=== PATIENT | male | born 1970 | race Caucasian/White ===

== ENCOUNTER 2018-09-03 14:11 | Inpatient (IN) | payer BC, OTHER ==
[~2018-09-03] VITALS: Ht 167.6 cm; Wt 99.8 kg
[2018-09-03] MEDS ORDERED: CYAN10009 PO (14:26)
[2018-09-03] MEDS ORDERED: METO25TA6 PO (14:26)
[2018-09-03] MEDS ORDERED: HYDROXYZINE PAMOATE 25 MG CAPSULE PO PRN (15:45)
[2018-09-03] MEDS ORDERED: MAG HYDROX/AL HYDROX/SIMETH 30 ML LIQUID UDC PO PRN (15:45)
[2018-09-03] MEDS ORDERED: LOPERAMIDE HCL 2 MG CAPSULE PO PRN ×2 (15:45)
[2018-09-03] MEDS ORDERED: IBUPROFEN 600 MG TABLET PO PRN (15:45)
[2018-09-03] MEDS ORDERED: DIAZEPAM 5 MG TABLET PO PRN (15:45)
[2018-09-03] MEDS ORDERED: ONDANSETRON 4 MG/2 ML VIAL IM PRN (15:45)
[2018-09-03] MEDS ORDERED: THIAMINE HCL 200 MG/2 ML VIAL IM ONE (15:45)
[2018-09-03] MEDS ORDERED: LORAZEPAM 2 MG/1 ML VIAL IM PRN (15:45)
[2018-09-03] MEDS ORDERED: DIAZEPAM 10 MG TABLET PO PRN (15:45)
[2018-09-03] MEDS ORDERED: MAGNESIUM HYDROXIDE 30 ML LIQUID UDC PO PRN (15:45)
[2018-09-03 15:51] LABS: BASOPHILS # (AUTO) 0.1 K/uL (0.0-8.0); EOSINOPHILS # (AUTO) 0.2 K/uL (0.0-0.7); EOSINOPHILS % (AUTO) 2.3 % (0.0-7.0); HEMATOCRIT 45.6 % (36.7-47.1); HEMOGLOBIN 15.6 g/dL (12.5-16.3); LYMPHOCYTES # (AUTO) 2.3 K/uL (20.0-40.0); MEAN CORPUSCULAR HEMOGLOBIN 28.2 uug (23.8-33.4); MEAN CORPUSCULAR HGB CONC 34 g/dL (32.5-36.3); MEAN CORPUSCULAR VOLUME 82.5 fL (73.0-96.2); MONOCYTES # (AUTO) 0.5 K/uL (2.0-10.0); MONOCYTES % (AUTO) 6.5 % (0.0-11.0); NEUTROPHILS # (AUTO) 4.3 K/uL (1.8-8.9); NEUTROPHILS % (AUTO) 59.2 % (38.5-71.5); PLATELET COUNT (AUTO) 149 K/uL (152-348); RED BLOOD CELL COUNT(AUTO) 5.53 MIL/uL (4.06-5.63); WHITE BLOOD COUNT (AUTO) 7.3 K/uL (3.6-10.2)
[2018-09-03 15:59] LABS: *AMPHETAMINE, URINE NEGATIVE (NEGATIVE); *BARBITURATE, URINE NEGATIVE (NEGATIVE); *CANNABINOID, URINE NEGATIVE (NEGATIVE); *COCCAINE, URINE NEGATIVE (NEGATIVE); *OPIATE, URINE NEGATIVE (NEGATIVE); *PHENCYCLIDINE SCREEN,URINE NEGATIVE (NEGATIVE)
--- NOTE | 2018-09-03 16:00 | NUR ---
ADMISSION Patient arrived on the unit at 1504. Body assessment completed by male staff nurse, patients skin is intact. Patient is 5 feet 6 inches and weighs 220 lbs. Oriented to unit and to room, education oncology physician assistant light use was provided. BP: 124/82 hr: 108, r: 18 t: 98.2 o2 sat: 94% room air. Patient appears older than stated age, odorous and flushed. Has worried/anxious facial expression. Noted with avoidant eye contact, depressed mood and flat affect. patient noted easily overwhelmed and guarded. Patient noted flushed and with slurred speech. Is fidgety and tearful. Patient is alert and oriented x4. Patient currently intoxicated, with no s/sx of withdrawal noted. Patient smells of alcohol. SUBSTANCE USE/HISTORY 1. Etoh- C[employer] Light Beer. Reports had his first drink at age of 7-8 years old. Began drinking socially in his teens. Became a heavy drinker as an adult. Patient reports relapsed two weeks ago, and has been consuming eighteen, 12oz cans of Coor's Lights along with nine, 16oz cans of Coor's Light beer daily for two weeks. Last Consumed drink was 09/03/2018 (3495-2400), consumed twenty-three, 12oz cans of C[employer] Light Beer. Was sober for 72 days prior to relapse. Reports longest Period of sobriety was for 6.5 months In the beginning of the year. Typical withdrawal symptoms include: " nausea, sweats, tremors, sick to my stomach, feeling hot and cold, dry heaving, and vomiting" CONSEQUENCES OF SUBSTANCE ABUSE -Positive history of blackouts, patient verbalized, "My ex wives says I would say and do things, that I do not recall telling/doing to her, she says we would get into arguments and the next day I would have no recollection of it -Denies withdrawal induced delirium. -Denies any history of seizure. MEDICAL/PSYCHIATRIC CONDITIONS -Hypertension, diagnosed at the age of [age] years old, Patient currently taking Metoprolol 25mg PO BID, last taken today. -Pre-diabetes, diagnosed at the age of [age] years old. -Anxiety diagnosed at age of 46, Patient currently taking BuSpar, and Hydroxyzine, Patient reports he does not know the strength of the medications (Dr. victoria was made aware) -Depression diagnosed at age of 46. -Appendectomy, at age 10. PRIMARY CARE PHYSICIAN/PSYCHIATRIST -Does not recall the name of MD, located in [place], no psychiatrist. PSYCHIATRIC COMPLICATIONS -Denies Involuntary psych hospitalization. -Denies SI/SA. TREATMENT HISTORY 1. [facility] twice, once this year, and once last year. 2. the [facility] three times there about three years ago. "I've been to treatment numerous times" Patient unable to recall dates and times. MOTIVATION Reports usage of etoh: I started drinking with friends and having a good time, When I was 17-19 y.o. I would drink all night and go to work the next day and not have a problem, But now I just keep thinking I can stop whenever I want but my body and my health dont agree. I am not young as I used to be I guess, Now I Drink because if I dont I feel really sick and my cravings take over I drink now, because I get stressed and overwhelmed with things Verbalized wants to get sober because, " I am not living, I cant make it to work, I dont function anymore, I am falling apart, I need to change" Reports triggers for relapse include, " When i attempt to stop on my own i feel really sick, I Try but the cravings kick in and i cave in and end up drinking to make me feel better, but its affected everything in my life, its affected my job, my relationship with my daughter, and my me because of it. Barriers for getting/staying sober include: " I've tried getting sober on my own, and i just can't do it, I crave alcohol so bad, like right now I just really want a beer, and when i find it difficult to cope with things or I get overwhelmed I end up drinking" Consequences of drinking include " My me, my daughter is upset at me that I always do this, I got to work drunk, the other day I went into work wearing two different shoes, I've also had unspecified legal problems" Patient reports he has attempted to get sober multiple times, but with no success. reports this time will be different because, " I believe God will do something, I can only take so much" Patient reports he plans on attending [facility] upon completing detox. Patient seen and examined by Dr. Gary MD will input admitting orders. Safety Measures are in place. call light kept with in reach, will continue to monitor closely.
[2018-09-03 16:09] LABS: BILIRUBIN,TOTAL 1.1 mg/dL (0.2-1.0); CREATININE 1.1 mg/dL (0.6-1.3); MAGNESIUM 2.3 mg/dL (1.8-2.4); POTASSIUM 3.5 mmol/L (3.5-5.1); TOTAL PROTEIN, SERUM 9.2 g/dL (6.4-8.2)
[2018-09-03 16:20] LABS: THYROID STIMULATING HORMONE 3.278 mIU/mL (0.358-3.740)
[2018-09-03 17:31] VITALS: BP 122/85
--- NOTE | 2018-09-03 18:54 | NUR ---
END OF SHIFT Patient admitting today during shift, with admitting Dx: etoh withdrawal. Patient currently still noted intoxicated, continues under close observation. Patient is scheduled to begin a 5 day Valium taper tomorrow morning. Has PRN medication available for s/sx of withdrawal. Safety measures in place. Endorsed to table games shift manager nurse, all pertinent information was discussed.
--- NOTE | 2018-09-03 18:54 | NUR ---
START OF SHIFT NOTE Presented patient is a 47year old male admitted today at 1500 for safety Alcohol withdrawal under medical supervision. Patient is on ordered PRN Medications, and ordered 5 day Valium taper, with first dose will be giving tomorrow at 0900, as ordered. Patient is alert and oriented x4, cooperative, with anxious mood and flat affect. Throughout the day patient noted intoxicated, per day shift nurse report. No PRN Medications administrated during day shift. Encouraged to fluids intake as tolerated. Encouraged to attend group activities. All needs met. Safety measures in place: Call light within reach, bed I in the lowest position, and locked; Padded bed rails up x2. Patient endorsed by day shift nurse. Will continue to monitor.
[2018-09-03] MEDS ORDERED: BUSP5TAB3 PO (19:18)
[2018-09-03 20:00] VITALS: BP 94/65
--- NOTE | 2018-09-03 20:00 | NUR ---
CIWA ASSESSMENT CIWA=14. Patient noted with moderate withdrawal symptoms such as anxiety, agitation, nervousness, irritability, nausea, generalized body aches, bilateral tremors, stomach cramps, very mild headache, restlessness, and fatigue. Scheduled and PRN medications will be administrated as ordered. Safe and calm environment provided. All needs met. Safety measures in place: Call light within reach, bed I in the lowest position, and locked; Padded bed rails up x2. Will continue to monitor.
[2018-09-03] MEDS: METOPROLOL TARTRATE 25 MG TABLET PO SCH (20:11)
[2018-09-03] MEDS: DIAZEPAM 10 MG TABLET PO PRN (20:12)
--- NOTE | 2018-09-03 20:12 | NUR ---
PRN VALIUM PO ADMINISTRATION PRN Valium 10 mg PO administrated for CIWA=14 at 2012, as ordered. Will be reassessing in one hour. Patient tolerated well. Encouraged to fluids intake as tolerated. Safe and calm environment provided. All needs met. Safety measures in place: Call light within reach, bed I in the lowest position, and locked; Padded bed rails up x2. Will continue to monitor.
[2018-09-03] MEDS: ONDANSETRON ODT 4 MG TAB.RAPDIS SL PRN (20:18)
--- NOTE | 2018-09-03 20:18 | NUR ---
PRN ZOFRAN SL ADMINISTRATION PRN Zofran Odt 4 mg SL administrated for nausea, as ordered. Will be reassessing in one hour. Patient tolerated well. Safe and calm environment provided. All needs met. Safety measures in place: Call light within reach, bed I in the lowest position, and locked; Padded bed rails up x2. Will continue to monitor.
--- NOTE | 2018-09-03 21:18 | NUR ---
PRN VALIUM RE-ASSESSMENT CIWA =10. PRN Valium 10 mg PO administrated for CIWA=14 at 2012 was effective. Encouraged to fluids intake as tolerated. Safe and calm environment provided. All needs met. Safety measures in place: Call light within reach, bed I in the lowest position, and locked; Padded bed rails up x2. Will continue to monitor.
--- NOTE | 2018-09-03 21:18 | NUR ---
PRN ZOFRAN SL RE-ASSESSMENT Patient reports, "I don't have nausea anymore". PRN Zofran Odt 4 mg SL administrated for nausea at 2018 was effective. Safe and calm environment provided. All needs met. Safety measures in place: Call light within reach, bed I in the lowest position, and locked; Padded bed rails up x2. Will continue to monitor.
[2018-09-04] VITALS: BP 107/68
--- NOTE | 2018-09-04 | NUR ---
CIWA ASSESSMENT CIWA=12. Patient presented with anxiety, agitation, nervousness, generalized body aches, bilateral tremors, sweating, very mild headache, restlessness, and fatigue. PRN medications will be administrated as ordered. Safe and calm environment provided. All needs met. Safety measures in place: Call light within reach, bed I in the lowest position, and locked; Padded bed rails up x2. Will continue to monitor.
[2018-09-04] MEDS: DIAZEPAM 10 MG TABLET PO PRN (00:12)
--- NOTE | 2018-09-04 00:12 | NUR ---
PRN VALIUM PO AND PRN MOTRIN PO ADMINISTRATION PRN Valium 10 mg PO administrated for CIWA=12 at 0012, and PRN Motrin 600 mg PO administrated at 0012, as ordered. Patient tolerated well. Will be reassessing in one hour. Patient tolerated well. Encouraged to fluids intake as tolerated. Safe and calm environment provided. All needs met. Safety measures in place: Call light within reach, bed I in the lowest position, and locked; Padded bed rails up x2. Will continue to monitor.
--- NOTE | 2018-09-04 01:12 | NUR ---
PRN VALIUM PO AND PRN MOTRIN RE-ASSESSMENT Patient is sleeping. RR:16. Respirations are even and unlabored. PRN Valium 10 mg PO administrated for CIWA=12 at 0012, and PRN Motrin 600 mg PO administrated at 0012 were effective. Encouraged to fluids intake as tolerated. Safe and calm environment provided. All needs met. Safety measures in place: Call light within reach, bed I in the lowest position, and locked; Padded bed rails up x2. Will continue to monitor.
[2018-09-04 04:00] VITALS: BP 117/80
--- NOTE | 2018-09-04 04:00 | NUR ---
CIWA ASSESSMENT CIWA=10. Patient noted with anxiety, agitation, nervousness, sweating, tremors, restlessness, and fatigue. All needs met. Safety measures in place: Jose light within reach, bed is locked in lowest position, padded rails up x2. Will continue to monitor closely.
--- NOTE | 2018-09-04 07:27 | NUR ---
END OF SHIFT NOTE Endorsed patient is a 47 year old male admitted for Alcohol withdrawal, continues ordered PRN Medications, which tolerated well. Patient is alert and oriented x4, cooperative, with anxious/irritable mood and flat/depressive affect. CIWA=14 at 2000, CIWA=12 at 0000. Last CIWA=10 at 0400. Patient presented with moderate withdrawal symptoms such as anxiety, agitation, nervousness, irritability, nausea, generalized body aches, bilateral tremors, stomach cramps, very mild headache, restlessness, and fatigue. PRN Valium 10 mg PO administrated for CIWA=14 at 2012, PRN Zofran Odt 4 mg SL administrated for nausea at 2018, PRN Valium 10 mg PO administrated for CIWA=12 at 0012, PRN Motrin 600 mg PO administrated for generalized body aches "5/10" at 0012, and were effective. Patient encouraged to fluids intake as tolerated. Encouraged to attend group activities. Patient slept for 10 hours, intake 250 ml, output: voided x1. All needs met. Safety measures in place: Jose light within reach, bed is locked in lowest position, padded rails up x2. Patient endorsed to day shift nurse.
--- NOTE | 2018-09-04 07:36 | NUR ---
BEGINNING OF SHIFT Patient endorsement report received from communication studies professor nurse, all pertinent information was discussed. Patient continues under close observation, admitted yesterday with admitting Dx: etoh withdrawal. Patient is scheduled to begin a 5 day Valium taper today during shift. will monitor closely. Per communication studies professor report patient received Valium x2, Zofran, and Motrin. Last CIWA score of: 10, and slept for 10 hours. Received patient awake, alert and oriented x4, educated regarding plan of care for the day and medication regimen with good verbal understanding. Safety measures are in place. call light kept with in reach, will continue to monitor.
[2018-09-04 09:00] VITALS: BP 114/67
[2018-09-04] MEDS ORDERED: TUBERCULIN,PURIF.PROT.DERIV. 5 TU/0.1 ML TEST ID ONE (09:00)
[2018-09-04] MEDS ORDERED: 5 DAY TAPER VALIUM-SERENITY PROTOCOL PO PRN (09:00)
[2018-09-04] MEDS: CYANOCOBALAMIN 1,000 MCG TABLET PO SCH (09:02)
[2018-09-04] MEDS: THIAMINE HCL 100 MG TABLET PO SCH (09:02)
[2018-09-04] MEDS: METOPROLOL TARTRATE 25 MG TABLET PO SCH ×2 (09:02→17:07)
[2018-09-04] MEDS: DIAZEPAM 10 MG TABLET PO SCH ×4 (09:02→20:47)
[2018-09-04] MEDS: FOLIC ACID 1 MG TABLET PO SCH (09:03)
[2018-09-04] MEDS: MULTIVITAMINS,THERAPEUTIC TABLET PO SCH (09:03)
--- NOTE | 2018-09-04 09:10 | NUR ---
CIWA ASSESSMENT Was noted exhibiting the following s/sx of withdrawal: agitation, diaphoresis, anhedonia, anxiety, depression, difficulty concentrating, difficulty sleeping, emotional volatility, fatigue, flushed face, frequent nocturnal awakenings, generalized discomfort, intermittent perspiration, sensitivity to light,and tremors, Current CIWA score of: 15, MD notified.
[2018-09-04 12:28] VITALS: BP 119/77
[2018-09-04] MEDS: ONDANSETRON ODT 4 MG TAB.RAPDIS SL PRN (13:19)
--- NOTE | 2018-09-04 13:19 | NUR ---
PRN ZOFRAN Patient c/o nausea and reported one episodes of vomiting. Administered zofran as ordered, will monitor effectiveness of medication.
--- NOTE | 2018-09-04 13:22 | NUR ---
CIWA ASSESSMENT Was noted exhibiting the following s/sx of withdrawal: agitation, diaphoresis, anhedonia, anxiety, depression, difficulty concentrating, difficulty sleeping, emotional volatility, fatigue, flushed face, frequent nocturnal awakenings, generalized discomfort, intermittent perspiration, nausea,and tremors, Current CIWA score of: 16, MD notified.
--- NOTE | 2018-09-04 14:19 | NUR ---
ZOFRAN REASSESSMENT Medication effective, no further episodes of vomiting noted, no c/o nausea, will continue to monitor.
--- NOTE | 2018-09-04 14:55 | NUR ---
Therapist prompted client to attend group therapy.
[2018-09-04] MEDS ORDERED: DIAZEPAM 10 MG TABLET PO PRN ×2 (15:46)
[2018-09-04] MEDS ORDERED: DIAZEPAM 5 MG TABLET PO PRN (15:46)
[2018-09-04 16:49] VITALS: BP 121/78
[2018-09-04] MEDS: busPIRone 5 MG TABLET PO SCH (17:07)
--- NOTE | 2018-09-04 17:55 | NUR ---
CIWA ASSESSMENT Continues to exhibit the following s/sx of withdrawal: agitation, diaphoresis, anhedonia, anxiety, depression, difficulty concentrating, difficulty sleeping, emotional volatility, fatigue, flushed face, frequent nocturnal awakenings, generalized discomfort, intermittent perspiration, nausea,and tremors, Current CIWA score of: 16, MD notified.
--- NOTE | 2018-09-04 19:07 | NUR ---
START OF SHIFT NOTE Endorsed patient, 47 year old male, continues 5 day Valium taper ordered for Alcohol withdrawal. Today is first day. Patient tolerated well. Patient is on the bed, alert and oriented x4, with depressive mood and anxious affect. Last CIWA=16 at 1649. Patient presented with following moderate withdrawal symptoms such as anxiety, agitation, irritability, depression, flashed face, nervousness, headache, generalized body pain, nausea, bilateral tremors, sweating, restlessness, and fatigue. PRN Zofran 4 mg SL administrated for nausea at 1319 and was effective. Encouraged to fluids intake as tolerated. Encouraged to attend group activities. All needs met. Safety measures in place: Call light within reach, bed in the lowest position, and locked, padded bed rails up x2. Patient endorsed by day shift nurse. Will continue to monitor.
--- NOTE | 2018-09-04 19:07 | NUR ---
END OF SHIFT Patient alert and oriented x4, noted Isolative, prefers to stay in room, encouraged to attend group therapies/sessions and to socialize with peers. Denies SI/HI. Patient appears disheveled and unkempt, encouraged self grooming and maintenance of personal space. Linen change offered and declined. Patient with flat affect and avoidant eye contact. Noted with depressed and anxious mood. Easily agitated and irritable. Patient provided with non pharmacological interventions as needed. Patient started on 5 day Valium taper during shift. Was noted exhibiting the following s/sx of withdrawal: agitation, diaphoresis, anhedonia, anxiety, depression, difficulty concentrating, difficulty sleeping, emotional volatility, fatigue, flushed face, frequent nocturnal awakenings, generalized discomfort, intermittent perspiration, sensitivity to light, nausea, and tremors, last CIWA score of: 16. MD was notified of all CIWA scores during shift. Received PRN: Zofran during shift, medication effective. . Encouraged to develop coping skills and utilization of non pharmacological interventions. Safety measures are in place, call light kept with in reach. Patient endorsed to [facility] shift lead nurse, all pertinent information was discussed.
[2018-09-04 20:00] VITALS: BP 96/60
--- NOTE | 2018-09-04 20:00 | NUR ---
CIWA ASSESSMENT CIWA=12 at 2000. Patient presented with withdrawal symptoms such as anxiety, agitation, irritability, depression, flashed face, nervousness, bilateral tremors, diarrhea, abdominal cramps, insomnia, sweating, restlessness, and fatigue. Scheduled Valium 5 mg PO, PRN Imodium 4mg PO for diarrhea, and PRN Benadryl 50 mg PO for insomnia will be administrated, as ordered. Safety and calm environment provided. All needs met. Safety measures in place: Call light within reach, bed is locked on the lowest position, padded bed rails up bilaterally. Will continue to monitor.
[2018-09-04] MEDS: diphenhydrAMINE 50 MG CAPSULE PO PRN (20:47)
--- NOTE | 2018-09-04 20:47 | NUR ---
PRN BENADRYL PO ADMINISTRATION PRN Benadryl 50 mg PO administrated for insomnia at 2046, as ordered. Will be reassessing in one hour. Patient tolerated well. Safe and calm environment provided. All needs met. Safety measures in place: Call light within reach, bed is locked on the lowest position, padded bed rails up bilaterally. Will continue to monitor.
--- NOTE | 2018-09-04 20:52 | NUR ---
PRN IMMODIUM PO ADMINISTRATION Patient c/o diarrhea, "for last hour three times". PRN Immodium (Loperamide HCL 2 mg capsule) 4 mg (2 Capsules) after 1st bout of diarrhea PO administrated at 2051, as ordered. Reassessment will be done in one hour. Patient tolerated well. Safe and calm environment provided. All needs met. Safety measures in place: Call light within reach, bed is locked on the lowest position, padded bed rails up bilaterally. Will continue to monitor. Addendum: 09/04/18 at 2204 by REJI HERNANDEZ RN IMODIUM
--- NOTE | 2018-09-04 21:47 | NUR ---
PRN BENADRYL PO RE-ASSESSMENT Patient is sleeping o his side. Respirations are even and unlabored. RR:15. PRN Benadryl 50 mg PO administrated for insomnia at 2046 was effective. Encouraged to fluids intake as tolerated. Safe and calm environment provided. All needs met. Safety measures in place: Call light within reach, bed I in the lowest position, and locked, padded bedrails up bilaterally. Will continue to monitor.
--- NOTE | 2018-09-04 21:52 | NUR ---
PRN IMODIUM PO RE-ASSESSMENT Patient is sleeping o his side. Respirations are even and unlabored. RR:15. PRN Imodium (Loperamide HCL 2 mg capsule) 4 mg (2 Capsules) after 1st bout of diarrhea PO administrated at 2051 was effective. Safe and calm environment provided. All needs met. Safety measures in place: Call light within reach, bed I in the lowest position, and locked, padded bedrails up bilaterally. Will continue to monitor.
[2018-09-05] VITALS: BP 101/59
--- NOTE | 2018-09-05 | NUR ---
CIWA ASSESSMENT Patient presented with following withdrawal symptoms, such as anxiety, agitation, depression, nervousness, sweating, chills, bilateral tremors, restlessness, and fatigue. All needs met. Safety measures in place: Jose light within reach, bed is locked in lowest position, padded rails up x2. Will continue to monitor closely. Addendum: 09/05/18 at 0022 by REJI HERNANDEZ RN CIWA=9.
--- NOTE | 2018-09-05 04:00 | NUR ---
VS REFUSED, CIWA DEFERRED VS refused, CIWA deferred at 0400 due patient sleeping. Will be to assess when patient awake. All needs met. Safety measures in place: Call light within reach, bed in the lowest position, and locked, padded bed rails up x2. Will continue to monitor.
[2018-09-05 06:06] LABS: HEPATITIS B SURFACE AG Negative (Negative)
[2018-09-05 07:13] LABS: BASOPHILS % (AUTO) 0.8 % (0.0-2.0); EOSINOPHILS # (AUTO) 0.2 K/uL (0.0-0.7); EOSINOPHILS % (AUTO) 4.5 % (0.0-7.0); LYMPHOCYTES # (AUTO) 1.2 K/uL (20.0-40.0); LYMPHOCYTES % (AUTO) 32.9 % (20.5-51.5); MEAN CORPUSCULAR HEMOGLOBIN 28.1 uug (23.8-33.4); MEAN CORPUSCULAR HGB CONC 34 g/dL (32.5-36.3); MEAN CORPUSCULAR VOLUME 83.2 fL (73.0-96.2); MONOCYTES # (AUTO) 0.3 K/uL (2.0-10.0); MONOCYTES % (AUTO) 8.3 % (0.0-11.0); NEUTROPHILS % (AUTO) 53.5 % (38.5-71.5); RED BLOOD CELL COUNT(AUTO) 4.87 MIL/uL (4.06-5.63)
--- NOTE | 2018-09-05 07:14 | NUR ---
END OF SHIFT NOTE This report on patient, a 47 year old male admitted for alcohol withdrawal, continues ordered 5 day Valium Taper (day 3) with tolerated well. He is a full code. NKA, is on a fall and seizures precautions. CIWA=12 at 2000. The most recent CIWA=9 at 0000. Patient noted with withdrawal symptoms, such as anxiety, agitation, irritability, depression, flashed face, nervousness, chills, bilateral tremors, abdominal cramps, diarrhea, sweating, restlessness, and fatigue. PRN Benadryl PO administrated for insomnia at 2046, PRN Imodium (Loperamide HCL 2 mg capsule) 4 mg (2 Capsules) after 1st bout of diarrhea PO administrated at 2051, and were effective. Patient encouraged to intake fluids as tolerated. Encouraged to attend group activities. Patient slept for 10 hours, intake 1,000 ml, output: voided x1, stool x3. All needs met. Safety measures in place: Jose light within reach, bed is locked in lowest position, padded rails up x2. Patient endorsed to day shift nurse.
[2018-09-05 07:26] LABS: HEMATOCRIT 40.5 % (36.7-47.1); HEMOGLOBIN 13.7 g/dL (12.5-16.3); WHITE BLOOD COUNT (AUTO) 3.7 K/uL (3.6-10.2)
[2018-09-05 07:27] LABS: BILIRUBIN,DIRECT 0.3 mg/dL (0.0-0.2); BILIRUBIN,TOTAL 1.1 mg/dL (0.2-1.0); PLATELET COUNT (AUTO) 91 K/uL (152-348); TOTAL PROTEIN, SERUM 7.2 g/dL (6.4-8.2)
--- NOTE | 2018-09-05 07:30 | NUR ---
Start of Shift Cuff Folder received report on 47 year old male admitted on 09/03/18 for medical management of ETOH withdrawals. Pt endorses NKA, full code and regular diet. Endorses PMH of HTN and a PPH of anxiety and depression. Pt currently on a 5 day Valium taper with last CIWA 9, per NOC report. Pt was administered PRN Benadryl(insomnia) and Imodium(Diarrhea) on NOC, per report. Cuff Folder encounters pt in pts room. Pt is resting and calm and cooperative. Pt is A/O x4 and makes his needs known. Pt with a flat affect and depressed mood. Pt is anxious and restless, stating, I was restless all night, didnt sleep great. Pt with fine tremors, moist skin and nausea. Bed in low position, with wheels locked and side rails up x2. Will continue to monitor, support and encourage according to plan of care.
[2018-09-05 08:00] VITALS: BP 118/85
--- NOTE | 2018-09-05 08:00 | NUR ---
CIWA 11 Pt is diaphoretic, tremulous, anxious, restless and complains of nausea. Will continue to monitor, support and encourage according to plan of care.
[2018-09-05] MEDS ORDERED: INFLUENZA VACCINE 2018-2019 0.5 ML DISP.SYRIN IM ONE (09:00)
[2018-09-05] MEDS ORDERED: PNEUMOCOCCAL 23-VAL P-SAC VAC 0.5 ML VIAL IM ONE (09:00)
[2018-09-05] MEDS: METOPROLOL TARTRATE 25 MG TABLET PO SCH ×2 (09:09→16:51)
[2018-09-05] MEDS: DIAZEPAM 10 MG TABLET PO SCH ×3 (09:09→20:23)
[2018-09-05] MEDS: busPIRone 5 MG TABLET PO SCH ×3 (09:09→16:50)
[2018-09-05] MEDS: THIAMINE HCL 100 MG TABLET PO SCH (09:09)
[2018-09-05] MEDS: FOLIC ACID 1 MG TABLET PO SCH (09:09)
[2018-09-05] MEDS: CYANOCOBALAMIN 1,000 MCG TABLET PO SCH (09:09)
[2018-09-05] MEDS: MULTIVITAMINS,THERAPEUTIC TABLET PO SCH (09:09)
[2018-09-05 09:23] LABS: EOSINOPHILS % (MANUAL) 5 % (0-8); LYMPHOCYTES % (MANUAL) 36 % (20-40); MONOCYTES % (MANUAL) 5 % (2-10); NEUTROPHILS % (MANUAL) 54 % (42-75)
--- NOTE | 2018-09-05 10:26 | NUR ---
Therapist prompted client to attend group therapy.
--- NOTE | 2018-09-05 10:34 | NUR ---
Endorsement Endorsed care of pt to [facility].
--- NOTE | 2018-09-05 10:38 | NUR ---
Endorsement Endorsement received from off going [facility], all pertinent info relayed.
[2018-09-05 12:00] VITALS: BP 101/73
--- NOTE | 2018-09-05 12:00 | NUR ---
CIWA 13 Pt is diaphoretic, tremulous, anxious, restless and lethargic. Will continue to monitor, support and encourage according to plan of care. Scheduled Buspar 5mg PO given, no PRN required or requested
[2018-09-05 16:00] VITALS: BP 97/58
--- NOTE | 2018-09-05 16:00 | NUR ---
CIWA 14 Pt is diaphoretic, tremulous, anxious, restless ,lethargic and has left deltoid pain 9/10 from Pneumococcal vaccine, warm compress applied to site. Will continue to monitor, support and encourage according to plan of care. Scheduled Buspar 5mg PO given, no PRN required or requested
--- NOTE | 2018-09-05 16:00 | NUR ---
Noemy [place] Patient states he has pain 07/28 in left deltoid where he received Pneumococcal vaccine, warm compress placed over muscle for comfort measures. Addendum: 09/05/18 at 1735 by DEEPA GARZA RN ASH ell[place]
[2018-09-05] MEDS: ONDANSETRON ODT 4 MG TAB.RAPDIS SL PRN (18:22)
--- NOTE | 2018-09-05 18:22 | NUR ---
PRN Zofran Zofran 4mg SL given for reports of nausea, no emesis Will reassess
--- NOTE | 2018-09-05 18:48 | NUR ---
End Of Shift Patient is a 47 yr old male who [facility] for a medically supervised withdrawal from ETOH ( Beer), he has been placed on a 5 day Valium taper and this is day 2. PRN medications given on this shift: Zofran 4mg SL, he did receive Flu and Pneumococcal vaccines and complains of left deltoid pain/ tenderness at site of Pneumococcal vaccine, warm compress applied to site. Platelet levels low decreased from 149 on 09/03 to 91 today 09/05, MD discontinued Ibuprofen. Patient appears lethargic, depressed and restless and has rested in bed most of day, encouraged to attend groups and interact with peers. He had a fluid intake of 1700 ML, 2 Voids and 0 BM, his last CIWA was 14 @ 1600 . Continue to follow MD plan of care and offer support and encouragement as needed. Endorsed to shift nurse manager.
--- NOTE | 2018-09-05 18:50 | NUR ---
START OF SHIFT NOTE Endorsed patient,47 year old male, continues 5 day Valium taper, ordered for Alcohol withdrawal. Patient is alert and oriented x4, noted anxious mood and depressive/flat affect. Latest CIWA=14 at 1600: Patient presented with moderate withdrawal symptoms, such as anxiety, agitation, nervousness, bilateral tremors, flashed face, sweating, depression, restlessness, and fatigue, per day shift nurse report. PRN Zofran 4 mg SL administrated for nausea at 1822, and was effective. Encouraged to fluids intake as tolerated. Encouraged to attend group activities. All needs met. Safety measures in place: Call light within reach, bed I in the lowest position, and locked; Padded bed rails up x2. Patient endorsed by day shift nurse. Will continue to monitor.
[2018-09-05 20:00] VITALS: BP 109/68
--- NOTE | 2018-09-05 20:00 | NUR ---
CIWA ASSESSMENT CIWA=13 at 2000. Patient appears anxious, agitated, with bilateral tremors, sweating, nervousness, c/o generalized body aches, bilateral tremors, restlessness, and fatigue. Scheduled Medications and PRN medications will be administrated as ordered. Safe and calm environment provided. All needs met. Safety measures in place: Call light within reach, bed I in the lowest position, and locked; Padded bed rails up x2. Will continue to monitor.
[2018-09-05] MEDS: diphenhydrAMINE 50 MG CAPSULE PO PRN (20:23)
--- NOTE | 2018-09-05 20:23 | NUR ---
PRN BENADRYL PO ADMINISTRATION PRN Benadryl 50 mg PO administrated for insomnia at 2022, as ordered. Will be reassessing in one hour. Patient tolerated well. Safe and calm environment provided. All needs met. Safety measures in place: Call light within reach, bed is locked on the lowest position, padded bed rails up bilaterally. Will continue to monitor.
--- NOTE | 2018-09-05 21:23 | NUR ---
PRN BENADRYL PO RE-ASSESSMENT PRN Benadryl 50 mg PO administrated for insomnia at 2022 was effective. Patient is sleeping. Respirations are even and unlabored. Safe and calm environment provided. All needs met. Safety measures in place: Call light within reach, bed I in the lowest position, and locked, padded bedrails up bilaterally. Will continue to monitor.
[2018-09-05] MEDS ORDERED: TRAZODONE 50 MG TABLET PO ONE (22:00)
--- NOTE | 2018-09-05 22:00 | NUR ---
PRN TRAZODONE PO ADMINISTRATION PRN Trazodone 50 mg PO administrated for insomnia at 2200, as ordered. Will be reassessing in one hour. Patient tolerated well. Safe and calm environment provided. All needs met. Safety measures in place: Call light within reach, bed is locked on the lowest position, padded bed rails up bilaterally. Will continue to monitor.
--- NOTE | 2018-09-05 23:00 | NUR ---
PRN TRAZODONE PO RE-ASSESSMENT PRN Trazodone 50 mg PO administrated for insomnia at 2133 was effective. Patient is sleeping. Respirations are even and unlabored. Safe and calm environment provided. All needs met. Safety measures in place: Call light within reach, bed is locked on the lowest position, padded bed rails up bilaterally. Will continue to monitor. Addendum: 09/05/18 at 2331 by REJI HERNANDEZ RN PRN Trazodone 50 mg PO administrated for insomnia at 2200 was effective
--- NOTE | 2018-09-06 | NUR ---
VS REFUSED, CIWA DEFERRED VS refused, CIWA deferred at 0000 due patient sleeping. Will be to assess when patient awake. All needs met. Safety measures in place: Call light within reach, bed in the lowest position, and locked, padded bed rails up x2. Will continue to monitor.
--- NOTE | 2018-09-06 07:04 | NUR ---
END OF SHIFT NOTE Presented patient, a 47 year old male, tolerated well with 5 day Valium Taper ordered for alcohol withdrawal. The most recent CIWA=13 at 1999. Withdrawal symptoms of anxiety, agitation, irritability, depression, nervousness, chills, bilateral tremors, generalized body pain, sweating, and restlessness were persistently noted. PRN Benadryl PO administrated for insomnia at 2022, PRN Trazodone 50 mg PO administrated for insomnia at 2199, and were effective. Patient encouraged to intake fluids as tolerated. Encouraged to attend group activities. Patient slept for 9 hours, intake 1,250 ml, output: voided xx2. All needs met. Safety measures in place: Jose light within reach, bed is locked in lowest position, padded rails up x2. Patient endorsed to day shift nurse.
--- NOTE | 2018-09-06 07:30 | NUR ---
Start Of Shift patient is a 47yr old male who was admitted to [facility] on 09/03/18 for a medically supervised withdrawal from ETOH ( Beer), he has been placed on a 5 day Valium taper and today is day 3. PRN Benadryl and Trazodone were given as sleep aids on PM shift, he slept for 9+ hours and last CIWA was 13 @ 2000. Currently he is asleep in bed, breathing even and unlabored, call light within reach. Continue to follow MD plan of care and offer support and encouragement as needed.
[2018-09-06] MEDS: METOPROLOL TARTRATE 25 MG TABLET PO SCH ×2 (09:00→16:35)
[2018-09-06] MEDS: MULTIVITAMINS,THERAPEUTIC TABLET PO SCH (09:00)
[2018-09-06] MEDS: DIAZEPAM 5 MG TABLET PO SCH ×2 (09:00→13:00)
[2018-09-06] MEDS: THIAMINE HCL 100 MG TABLET PO SCH (09:00)
[2018-09-06] MEDS: FOLIC ACID 1 MG TABLET PO SCH (09:00)
[2018-09-06] MEDS: busPIRone 5 MG TABLET PO SCH ×3 (09:00→16:35)
[2018-09-06] MEDS: CYANOCOBALAMIN 1,000 MCG TABLET PO SCH (09:00)
[2018-09-06 09:45] VITALS: BP 115/62
--- NOTE | 2018-09-06 09:45 | NUR ---
AM Medication Refusal Patient refused all AM medications: Valium 5mg PO, Buspar 5mg PO, Folic Acid, Metoprolol, Multi vitamin, B1 and B2 Vitamins. Patient states they are making him feel groggy and unwell. MD figueroa
--- NOTE | 2018-09-06 10:00 | NUR ---
[facility] 16 patient presents with lethargy, irritability, anxiety, agitation, diaphoresis, warm clammy skin, he is irritable and does not want to be bothered and asked questions or take scheduled AM medications, MD aware of situation.
--- NOTE | 2018-09-06 10:12 | NUR ---
Therapist prompted client to attend group therapy.
[2018-09-06 12:00] VITALS: BP 135/87
[2018-09-06 12:01] LABS: CREATININE 1.2 mg/dL (0.6-1.3); POTASSIUM 3.6 mmol/L (3.5-5.1); TOTAL PROTEIN, SERUM 7.1 g/dL (6.4-8.2)
--- NOTE | 2018-09-06 12:30 | NUR ---
[facility] 13 patient presents with lethargy, irritability, anxiety, agitation, diaphoresis, warm clammy skin, he is irritable and does not want to be bothered or take scheduled 1pm medications, MD aware of situation.
--- NOTE | 2018-09-06 13:00 | NUR ---
Medication Refusal patient refused scheduled 1300 Buspar 5mg PO and Valium 5mg PO MD aware and will talk to patient
[2018-09-06] MEDS ORDERED: 3 DAY TAPER OF LORAZEPAM -SERENITY PROTOCOL PO PRN (14:45)
[2018-09-06 16:00] VITALS: BP 114/85
--- NOTE | 2018-09-06 16:30 | NUR ---
[facility] 12 patient presents with lethargy, irritability, anxiety, agitation, diaphoresis, warm clammy skin MD changed Valium taper to 3 day Ativan taper Scheduled 1 mg PO Ativan , BuSpar 5mg and Metoprolol given
[2018-09-06] MEDS: LORAZEPAM 1 MG TABLET PO SCH ×2 (16:35→21:46)
--- NOTE | 2018-09-06 18:49 | NUR ---
End Of Shift Patient is a 47 yr old male who was admitted to [facility] on 09/03/18 for a medically supervised withdrawal from ETOH ( Beer), MD discontinued the 5 day Valium taper today and started a 3 day Ativan taper due to patient stating that Valium made him too groggy . NO PRN medications given on this shift. Patient appears lethargic, depressed and restless and has rested in bed most of day, encouraged to attend groups and interact with peers. He had a fluid intake of 1355 ML, 4 Voids and 0 BM, his last CIWA was 12 @ 1600 . Continue to follow MD plan of care and offer support and encouragement as needed. Endorsed to retail shift supervisor.
--- NOTE | 2018-09-06 19:30 | NUR ---
Start of shift Patient is a 47 year old male admitted here at [facility] for medically supervised ETOH withdrawal. Patient is on a 3 day Ativan taper started today 09/06/2018 at 1600. Patients last CIWA was 12. Patient is on Fall and Seizure precautions. Per endorsement patient did not have any PRN medications during day shift. Upon rounds patient was noted in room watching tv, and he seem anxious and agitated. Reviewed 2100 medications with patient and he verbalized understanding. Patient is breathing even and unlabored and no signs or symptoms of distress. Safety measures in place, bed locked in low position, side rails up x2, and call light within reach. Will continue to monitor.
[2018-09-06 20:00] VITALS: BP 97/65
--- NOTE | 2018-09-06 20:00 | NUR ---
CIWA Assessment Patient is presenting with s/s of withdrawal as follow: tremors, anxiety and agitation. Patients CIWA is 9. Breathing is even and unlabored and no s/s of distress. Safety measures in please, bed lock in low position, side rails up x2, and call light within reach. Will continue to monitor.
[2018-09-06] MEDS: TRAZODONE 100 MG TABLET PO PRN (21:46)
--- NOTE | 2018-09-06 21:47 | NUR ---
PRN Trazodone Patient is presenting with difficulty falling asleep. Administered PRN Trazodone and patient tolerated medication well. Patient is breathing even and unlabored and no signs or symptoms of distress. Safety measures in place. Will continue to monitor.
--- NOTE | 2018-09-06 22:47 | NUR ---
PRN Trazodone Reassessment Patient noted in bed resting with eyes closed, breathing is even and unlabored. Patient is not presenting with any s/s of distress. Safety measures in place, will continue to monitor.
[2018-09-07] VITALS: BP 115/71
--- NOTE | 2018-09-07 | NUR ---
CIWA Deferred Patient was noted in bed resting with eyes closed, breathing even and unlabored. Per protocol CIWA is to be assessed while patient is awake. Safety measures in please, bed lock in low position, side rails up x2, and call light within reach. Will continue to monitor.
[2018-09-07 04:00] VITALS: BP 112/82
--- NOTE | 2018-09-07 07:07 | NUR ---
End of shift Patient is a 47 year old male admitted here at [facility] for medically supervised ETOH withdrawal. Patient is on a 3 day Ativan taper started on 09/06/2018. Patients last CIWA was 9. Patient is on Fall and Seizure precautions. Patient had PRN Trazodone during this shift. Patient slept for 8 hours and had a total intake of 1,776ml. Patient voided x3 and had no bowel movements during this shift. Patient is breathing even and unlabored and no signs or symptoms of distress. Safety measures in place, bed locked in low position, side rails up x2, and call light within reach. Will endorse to day shift.
--- NOTE | 2018-09-07 07:29 | NUR ---
Start of shift 47 y/o Pt admitted for medically supervised withdrawal of ETOH. He is on 3 days Ativan taper, today is day 2. Pt slept 8 hours last night. Last CIWA 9 at 1999. Pt in room asleep, laying on right lateral. Respirations even and unlabored and no signs or symptoms of distress. Safety measures in place, bed locked in low position, side rails up x2, and call light within reach. Will monitor for withdrawal symptoms.
--- NOTE | 2018-09-07 08:00 | NUR ---
CIWA deferred- Pt asleep
[2018-09-07 08:33] VITALS: BP 102/75
[2018-09-07] MEDS ORDERED: DIAZEPAM 5 MG TABLET PO SCH (09:00)
[2018-09-07] MEDS: busPIRone 5 MG TABLET PO SCH ×3 (10:25→17:00)
[2018-09-07] MEDS: LORAZEPAM 1 MG TABLET PO SCH ×3 (10:25→21:41)
[2018-09-07] MEDS: FOLIC ACID 1 MG TABLET PO SCH (10:25)
[2018-09-07] MEDS: METOPROLOL TARTRATE 25 MG TABLET PO SCH ×2 (10:25→17:00)
[2018-09-07] MEDS: THIAMINE HCL 100 MG TABLET PO SCH (10:25)
[2018-09-07] MEDS: CYANOCOBALAMIN 1,000 MCG TABLET PO SCH (10:25)
[2018-09-07] MEDS: MULTIVITAMINS,THERAPEUTIC TABLET PO SCH (10:25)
--- NOTE | 2018-09-07 10:25 | NUR ---
Pt refused all morning medications. He requests to be left alone and continue sleeping.
[2018-09-07 12:00] VITALS: BP 105/73
--- NOTE | 2018-09-07 12:06 | NUR ---
CIWA 9- Pt remains fatigued, sleepy, fine tremors, sweats, irritable. He has flat affect anhedonia, and depressed mood.
[2018-09-07 12:31] LABS: BILIRUBIN,DIRECT 0.2 mg/dL (0.0-0.2); BILIRUBIN,TOTAL 0.8 mg/dL (0.2-1.0); CREATININE 1.2 mg/dL (0.6-1.3); POTASSIUM 3.8 mmol/L (3.5-5.1); TOTAL PROTEIN, SERUM 7.7 g/dL (6.4-8.2)
[2018-09-07 12:39] LABS: BASOPHILS % (AUTO) 0.6 % (0.0-2.0); EOSINOPHILS # (AUTO) 0.2 K/uL (0.0-0.7); EOSINOPHILS % (AUTO) 3.8 % (0.0-7.0); HEMATOCRIT 41.6 % (36.7-47.1); LYMPHOCYTES # (AUTO) 1.1 K/uL (20.0-40.0); LYMPHOCYTES % (AUTO) 27.7 % (20.5-51.5); MEAN CORPUSCULAR HGB CONC 34 g/dL (32.5-36.3); MEAN CORPUSCULAR VOLUME 83.3 fL (73.0-96.2); MONOCYTES # (AUTO) 0.5 K/uL (2.0-10.0); MONOCYTES % (AUTO) 12.4 % (0.0-11.0); NEUTROPHILS # (AUTO) 2.3 K/uL (1.8-8.9); NEUTROPHILS % (AUTO) 55.5 % (38.5-71.5); PLATELET COUNT (AUTO) 100 K/uL (152-348); RED BLOOD CELL COUNT(AUTO) 4.99 MIL/uL (4.06-5.63); WHITE BLOOD COUNT (AUTO) 4.1 K/uL (3.6-10.2)
--- NOTE | 2018-09-07 12:57 | NUR ---
Pt refuses 1300 dose of Buspar because he has been too sleepy and even though he is anxious he doesn't think it works. He will see how he feels in 2 hours for his scheduled Ativan and at 1700 for scheduled Buspar.
--- NOTE | 2018-09-07 15:52 | NUR ---
Pt asleep, arousable to verbal and firm touch. Pt refused scheduled dose of Ativan. Pt has been sleeping through out the day, remains drowsy, fatigued, irritable and prefers to sleep.
[2018-09-07 16:45] VITALS: BP 90/54
--- NOTE | 2018-09-07 16:45 | NUR ---
CIWA deferred, pt asleep
--- NOTE | 2018-09-07 18:56 | NUR ---
End of shift 47 y/o Pt admitted for medically supervised withdrawal of ETOH. He is on 3 day Ativan taper, today is day 2. Pt refused his scheduled morning medications because he was too sleepy, fatigued and sedated. Withdrawal symptoms include anxiety, sweats, fine tremors, fatigue, flat affect, anhedonia, depressed mood and irritability. Pt room remains cluttered food wrappers, empty bottles and dirty linens, clothes strewn around chair and table. Last CIWA 9 at 1200. PO fluids 500 ml, voids X2, BMx2. Encouraged Pt to participate in group therapies to identify positive coping skills to maintain sobriety. He did not attend any group sessions due to being sedated. Safety measures in place, bed locked in low position, side rails up x2, and call light within reach. Will monitor for withdrawal symptoms.
[2018-09-07] MEDS: TRAZODONE 100 MG TABLET PO PRN (19:26)
--- NOTE | 2018-09-07 19:30 | NUR ---
Start of shift Patient is a 47 year old male admitted here at [facility] for medically supervised ETOH withdrawal. Patient is on a 3 day Ativan taper started today 09/06/2018. Patients last CIWA was 9. Patient is on Fall and Seizure precautions. Per endorsement patient did not have any PRN medications during day shift. Upon rounds patient was noted in room watching tv, reviewed 2100 medications with patient and he verbalized understanding. Patient is breathing even and unlabored and no signs or symptoms of distress. Safety measures in place, bed locked in low position, side rails up x2, and call light within reach. Will continue to monitor.
[2018-09-07 20:00] VITALS: BP 113/75
--- NOTE | 2018-09-07 20:00 | NUR ---
CIWA Assessment Patient is presenting with s/s of withdrawal as follow: diarrhea, mild tremors, anxiety and agitation. Patients CIWA is 9 . Breathing is even and unlabored and no s/s of distress. Safety measures in please, bed lock in low position, side rails up x2, and call light within reach. Will continue to monitor.
--- NOTE | 2018-09-07 21:26 | NUR ---
PRN Trazodone 100 mg Patient is experiencing with difficulty falling asleep and he wants to take Trazodone to help with sleep. Administered PRN Trazodone and patient tolerated medication well. Patient is breathing even and unlabored and no signs or symptoms of distress. Safety measures in place. Will continue to monitor.
--- NOTE | 2018-09-07 22:26 | NUR ---
PRN Trazodone 100 mg Reassessment Patient noted in bed resting with eyes closed, breathing is even and unlabored. Patient is not presenting with any s/s of distress. Safety measures in place, will continue to monitor.
[2018-09-08] VITALS: BP 115/78
--- NOTE | 2018-09-08 | NUR ---
CIWA Assessment Patient is presenting with s/s of withdrawal as follow: tremors, anxiety and agitation. Patients CIWA is 6. Breathing is even and unlabored and no s/s of distress. Safety measures in please, bed lock in low position, side rails up x2, and call light within reach. Will continue to monitor.
[2018-09-08 04:00] VITALS: BP 112/82
--- NOTE | 2018-09-08 04:00 | NUR ---
CIWA Assessment Patient is presenting with s/s of withdrawal as follow: tremors, sweats, anxiety and agitation. Patients CIWA is 7. Breathing is even and unlabored and no s/s of distress. Safety measures in please, bed lock in low position, side rails up x2, and call light within reach. Will continue to monitor.
--- NOTE | 2018-09-08 07:05 | NUR ---
End of shift Patient is a 47 year old male admitted here at [facility] for medically supervised ETOH withdrawal. Patient is on a 3 day Ativan taper started today 09/06/2018. Patients last CIWA was 7. Patient is on Fall and Seizure precautions. Patient had PRN Trazodone. Patient slept for one hour and had a total intake of 1,500ml. Patient voided x3 and had no bowel movements during this shift. Patient is breathing even and unlabored and no signs or symptoms of distress. Safety measures in place, bed locked in low position, side rails up x2, and call light within reach. Will endorse to day shift.
--- NOTE | 2018-09-08 07:45 | NUR ---
START OF SHIFT Pt is a 47 yr old male, AA&Ox4. Pt was admitted Addendum: 09/08/18 at 0747 by KATHRYN NUNEZ LVN INCOMPLETE DOCUMENTATION
--- NOTE | 2018-09-08 07:47 | NUR ---
START OF SHIFT Pt is a 47 yr old male, AA&Ox4. Pt was admitted on 09/03/18 for ETOH withdrawal and has completed a 3 day Ativan taper as ordered. Received report from shift supervisor nurse. Pt was given Trazodone PRN for sleep. Medication was ineffective and slept for 1 hr. Last CIWA score was 7 during the night. Pt states of not sleeping at night due to increase anxiety, agitation and racing thoughts. Pt is noted with flat affect, fidgety and facial redness. CIWA score this morning is 12. Pt was encouraged increase fluid intake for hydration. Safety precautions observed. Call light is within reach. Will continue to monitor.
[2018-09-08 07:53] LABS: BASOPHILS % (AUTO) 0.4 % (0.0-2.0); EOSINOPHILS # (AUTO) 0.2 K/uL (0.0-0.7); EOSINOPHILS % (AUTO) 3.8 % (0.0-7.0); HEMATOCRIT 41.1 % (36.7-47.1); LYMPHOCYTES # (AUTO) 1.4 K/uL (20.0-40.0); LYMPHOCYTES % (AUTO) 31.1 % (20.5-51.5); MEAN CORPUSCULAR HEMOGLOBIN 28.4 uug (23.8-33.4); MEAN CORPUSCULAR HGB CONC 34 g/dL (32.5-36.3); MONOCYTES # (AUTO) 0.5 K/uL (2.0-10.0); MONOCYTES % (AUTO) 10.4 % (0.0-11.0); NEUTROPHILS # (AUTO) 2.5 K/uL (1.8-8.9); NEUTROPHILS % (AUTO) 54.3 % (38.5-71.5); PLATELET COUNT (AUTO) 107 K/uL (152-348); RED BLOOD CELL COUNT(AUTO) 4.95 MIL/uL (4.06-5.63); WHITE BLOOD COUNT (AUTO) 4.6 K/uL (3.6-10.2)
[2018-09-08 08:00] VITALS: BP 134/97
[2018-09-08 08:38] LABS: BILIRUBIN,TOTAL 0.8 mg/dL (0.2-1.0); CREATININE 1.3 mg/dL (0.6-1.3); POTASSIUM 3.3 mmol/L (3.5-5.1); TOTAL PROTEIN, SERUM 7.8 g/dL (6.4-8.2)
[2018-09-08] MEDS: FOLIC ACID 1 MG TABLET PO SCH (08:44)
[2018-09-08] MEDS: CYANOCOBALAMIN 1,000 MCG TABLET PO SCH (08:44)
[2018-09-08] MEDS: busPIRone 5 MG TABLET PO SCH (08:44)
[2018-09-08] MEDS: THIAMINE HCL 100 MG TABLET PO SCH (08:44)
[2018-09-08] MEDS: LORAZEPAM 1 MG TABLET PO SCH ×2 (08:45→20:06)
[2018-09-08] MEDS: METOPROLOL TARTRATE 25 MG TABLET PO SCH ×2 (08:45→17:39)
[2018-09-08] MEDS: MULTIVITAMINS,THERAPEUTIC TABLET PO SCH (08:45)
[2018-09-08] MEDS ORDERED: DIAZEPAM 5 MG TABLET PO SCH (09:00)
[2018-09-08] MEDS ORDERED: QUETIAPINE FUMARATE 25 MG TABLET PO PRN (09:30)
--- NOTE | 2018-09-08 10:57 | NUR ---
Therapist prompted client to attend group therapy sessions.
[2018-09-08 12:00] VITALS: BP 134/90
--- NOTE | 2018-09-08 12:30 | NUR ---
CIWA ASSESSMENT Pt is c/o anxiety, agitation, sweats and chills. Fine tremors are seen. Pt is observed fidgety and tense. CIWA score was 12. Encouraged increase fluid intake. Will continue to monitor.
[2018-09-08] MEDS: busPIRone 10 MG TABLET PO SCH ×2 (12:51→17:37)
[2018-09-08] MEDS ORDERED: busPIRone 5 MG TABLET PO SCH (13:00)
[2018-09-08] MEDS ORDERED: POTASSIUM CHLORIDE 20 MEQ TAB.PRT.SR PO ONE (14:15)
[2018-09-08 16:00] VITALS: BP 127/87
--- NOTE | 2018-09-08 19:10 | NUR ---
END OF SHIFT Pt is a 47 yr old male, AA&Ox4. Pt was admitted on 09/03/18 for ETOH withdrawal and is on 3 day Ativan taper as ordered. Pt has been observed with increase anxiety and agitation throughout the morning and was observed pacing back and forth in his room. Pt was observed fidgety and tense stating, I was not able to sleep during the night, I had too much on my mind. Dr. Soriano was made aware with new orders for Seroquel 50mg PO HS PRN for sleep. Pt was also observed isolative, remaining in his room throughout the day and refusing to attend group therapy. No PRNs were given during the day. Pt was encouraged to drink plenty of fluids for hydration. Last CIWA score was 6 at 1600. Safety precautions observed. Endorsed to tripe cooker nurse to continue with care.
--- NOTE | 2018-09-08 19:46 | NUR ---
START OF SHIFT NOTE Rcvd report from outgoing nurse. Pt is a 47 y/o male A/O to person, place, time, and purpose. Pt was admitted for medically supervised withdrawal from ETOH. Pt is on day 3 of a 3 day Ativan taper. Pt has been presenting w/ anxiety, agitation, insomnia, depressed and withdrawn mood, flat affect, isolative, abdominal cramps, tremors, and sweats. No PRN medications were given during previous shift. Last CIWA 6 @ 1600. Call light is within reach. Pt will continue to be monitored and needs met.
[2018-09-08 20:02] VITALS: BP 112/78
--- NOTE | 2018-09-08 20:02 | NUR ---
CIWA ASSESSMENT CIWA 7. Pt has been presenting w/ anxiety, agitation, insomnia, depressed and withdrawn mood, flat affect, isolative, abdominal cramps, tremors, and sweats. V/S: T:98.0, P:66, RR:20, SPO2:95, BP:112/78.
[2018-09-08] MEDS: CLONIDINE HCL 0.1 MG TABLET PO PRN (20:07)
--- NOTE | 2018-09-08 20:07 | NUR ---
PRN SEROQUEL AND CLONIDINE ADMINISTRATION Seroquel 50mg for sleep and Clonidine 0.1mg for anxiety given. Pt c/o difficulty sleeping and anxiety. Will reassess pt in 1 hr.
--- NOTE | 2018-09-08 21:07 | NUR ---
PRN SEROQUEL AND CLONIDINE REASSESSMENT Pt is in bed w/ his eyes closed. Pt's respirations are unlabored and even.
--- NOTE | 2018-09-09 00:12 | NUR ---
CIWA DEFERRED. V/S REFUSED Pt is in bed w/is eyes closed. Pt's respirations are unlabored and even.
--- NOTE | 2018-09-09 04:06 | NUR ---
CIWA DEFERRED. V/S REFUSED Pt is in bed w/ his eyes closed. Pt's respirations are unlabored and even.
--- NOTE | 2018-09-09 07:13 | NUR ---
END OF SHIFT NOTE Endorsed pt to oncoming nurse. Pt is a 47 y/o male A/O to person, place, time, and purpose. Pt was admitted for medically supervised withdrawal from ETOH. Pt completed day 3 of a 3 day Ativan taper. Pt continues presenting w/ anxiety, agitation, depressed and withdrawn mood, flat affect, isolative, abdominal cramps, tremors, and sweats. Pt denies ay S/I or H/I. PRN Seroquel 50mg for sleep and Clonidine 0.1mg for anxiety were given and noted effective. Pts fluid intake was 1055ml and he slept for 9hrs. Last CIWA 7 @ 1999. Call light is within reach.
--- NOTE | 2018-09-09 07:45 | NUR ---
START OF SHIFT Pt is a 47 yr old male, AA&Ox4. Pt was admitted on 09/03/18 for ETOH withdrawal and has completed a 3 day Ativan taper as ordered. Received report from production supervisor off shift nurse. Pt was given Seroquel PRN for sleep and Clonidine PRN for anxiety. Medication was effective and slept for 9 hrs. Last CIWA score was 7 during the night. Pt is currently in bed sleeping with respirations even and unlabored. Pt was noted irritable when woken up by Customer Sales Consultant for blood work as ordered. Pt requested for the folder tier to come back in the afternoon and went back to sleep. Will continue to f/u. Safety precautions observed. Call light is within reach. Will continue to monitor.
[2018-09-09 08:10] VITALS: BP 93/52
[2018-09-09] MEDS: busPIRone 10 MG TABLET PO SCH ×3 (09:00→17:00)
[2018-09-09] MEDS: MULTIVITAMINS,THERAPEUTIC TABLET PO SCH (09:00)
[2018-09-09] MEDS: CYANOCOBALAMIN 1,000 MCG TABLET PO SCH (09:00)
[2018-09-09] MEDS: THIAMINE HCL 100 MG TABLET PO SCH (09:00)
[2018-09-09] MEDS: FOLIC ACID 1 MG TABLET PO SCH (09:00)
[2018-09-09] MEDS: METOPROLOL TARTRATE 25 MG TABLET PO SCH ×2 (09:00→17:00)
--- NOTE | 2018-09-09 09:55 | NUR ---
MEDICATION REFUSED Pt woken up and appeared agitated and anxious and stating, "I need a fucken clock in here, I thought it was 7:00am". Pt continued to use inappropriate language. Pt was offered his scheduled medication but he refused to take. Pt states angrily, "I don't want to take any more fucken medication, I'm just done with it, it's not fucken doing anything to me". Pt was redirected and educated on the importance of medication's risk and benefits. Pt was passive and turn his back towards the writer editor. MD was made aware. Pt refused to take Lopressor 25mg PO, BuSpar 10mg PO, Multivitamin PO, Folic acid 1mg PO, Vitamin B1 100mg PO and Vitamin B12 1000mcg as ordered at 0900. CIWA score was 10. Will continue to monitor.
[2018-09-09 12:00] VITALS: BP 122/80
--- NOTE | 2018-09-09 13:00 | NUR ---
MEDICATION REFUSED Pt refused Buspar 10mg PO as scheduled at 1300. Md was was made aware. will continue to monitor.
[2018-09-09] MEDS ORDERED: BUSP10TA3 PO (13:40)
[2018-09-09] MEDS ORDERED: QUET50TA22 PO (13:40)
--- NOTE | 2018-09-09 14:59 | NUR ---
Therapist prompted client to attend group therapy.
[2018-09-09 16:00] VITALS: BP 119/80
[2018-09-09 16:29] LABS: CREATININE 1.2 mg/dL (0.6-1.3); POTASSIUM 3.3 mmol/L (3.5-5.1)
[2018-09-09 16:35] LABS: BILIRUBIN,TOTAL 0.6 mg/dL (0.2-1.0); CREATININE 1.2 mg/dL (0.6-1.3); MAGNESIUM 1.9 mg/dL (1.8-2.4); POTASSIUM 3.2 mmol/L (3.5-5.1)
--- NOTE | 2018-09-09 17:03 | NUR ---
MEDICATION REFUSED Pt refused to take BuSpar 10mg PO and Lopressor 25mg PO as scheduled at 1700. pt was educated on the importance of medication. Pt was passive and continued to refused. MD was made aware. Will continue to monitor.
--- NOTE | 2018-09-09 19:04 | NUR ---
END OF SHIFT Pt is a 47 yr old male, AA&Ox4. Pt was admitted on 09/03/18 for ETOH withdrawal and has completed a 3 day Ativan taper as ordered. Pt has been avoidant and isolative and remained in his room throughout the day. Pt refused to attend group therapy. Pt was c/o anxiety and agitation was noted fidgety and tense. Pt was using inappropriate language during assessment and refused all medication as scheduled during the day. MD was made aware. No PRNs were given. Pt is to be discharged tomorrow to [facility]. Last CIWA score was 12 at 1600. Safety precautions observed. Endorsed to change of address clerk nurse to continue with care.
--- NOTE | 2018-09-09 19:43 | NUR ---
START OF SHIFT NOTE Rcvd report from outgoing nurse. Pt is a 47 y/o male A/O to person, place, time, and purpose. Pt was admitted for medically supervised withdrawal from ETOH. Pt completed a 3 day Ativan taper and is scheduled for discharge on 09/10. Pt has been presenting w/ anxiety, agitation, emotional volatility, irritability, depressed and withdrawn mood, isolative, sweats, and tremors. Pt refused all medications today. Last CIWA 12 @ 1600. Call light is within reach. Pt will continue to be monitored and needs met.
[2018-09-09 20:09] VITALS: BP 139/92
--- NOTE | 2018-09-09 20:09 | NUR ---
CIWA ASSESSMENT CIWA 9. Pt has been presenting w/ anxiety, agitation, emotional volatility, irritability, depressed and withdrawn mood, isolative, sweats, and tremors. V/S; T:97.7, P:111, RR:18, SPO2:98, BP:139/92
[2018-09-09] MEDS ORDERED: POTASSIUM CHLORIDE 20 MEQ TAB.PRT.SR PO ONE (21:00)
--- NOTE | 2018-09-10 00:09 | NUR ---
CIWA DEFERRED Pt is in bed w/ his eyes closed. Pt's respirations are unlabored and even.
--- NOTE | 2018-09-10 04:07 | NUR ---
CIWA DEFERRED. V/S REFUSED Pt is in bed w/ his eyes closed. Pt's respirations are unlabored and even.
--- NOTE | 2018-09-10 07:08 | NUR ---
END OF SHIFT NOTE Endorsed pt to oncoming nurse. Pt is a 47 y/o male A/O to person, place, time, and purpose. Pt was admitted for medically supervised withdrawal from ETOH. Pt completed a 3 day Ativan taper and is scheduled for discharge on 09/10. Pt continues presenting w/ anxiety, agitation, emotional volatility, irritability, depressed and withdrawn mood, isolative, sweats, and tremors. Pt refused all medications today. Pt denies any S/I or H/I. Pts fluid intake was 2000ml and he slept for 7hrs. Last CIWA 9 @ 1999. Call light is within reach.
--- NOTE | 2018-09-10 07:43 | NUR ---
START OF SHIFT Pt is a 47 yr old male, AA&Ox4. Pt was admitted on 09/03/18 for ETOH withdrawal and has completed a 3 day modified Ativan taper as ordered. Received report from night assistant nurse. No PRN's were given during the night. Last CIWA score was 9 and slept for 7 hrs. Pt is stating this morning, "I don't feel good, I'm sweating and anxious". Pt is noted with increase HR of 116 and BP of 147/84. Pt did refused all medication that was scheduled yesterday on 09/09/18 which included Lopressor 25mg BID and BuSpar 10mg TID. Pt was encouraged to take this morning medications that are scheduled at 0900 including Lopressor 25mg PO and BuSpar 10mg PO. Pt was encouraged increase fluid intake. Pt was noted hemoglobin A1c was at 6.2 upon admission[address] Report to Dr. Vega in regards to chief complaint. received new order for Accu check one time order. New order was noted and carried out. Will continue to f/u. Addendum: 09/10/18 at 0813 by KATHRYN NUNEZ LVN pt is also stating of feeling nauseous and vomited x2. Skin is clammy to touch and c/o increase thirst.
[2018-09-10] MEDS ORDERED: BLOOD SUGAR DIAGNOSTIC 1 EACH STRIP VI ONE (07:45)
[2018-09-10 08:00] VITALS: BP 147/84
[2018-09-10] MEDS: FOLIC ACID 1 MG TABLET PO SCH (08:06)
[2018-09-10] MEDS: busPIRone 10 MG TABLET PO SCH (08:06)
[2018-09-10] MEDS: CYANOCOBALAMIN 1,000 MCG TABLET PO SCH (08:06)
[2018-09-10] MEDS: CLONIDINE HCL 0.1 MG TABLET PO PRN (08:06)
[2018-09-10] MEDS: METOPROLOL TARTRATE 25 MG TABLET PO SCH (08:06)
[2018-09-10] MEDS: THIAMINE HCL 100 MG TABLET PO SCH (08:06)
[2018-09-10] MEDS: MULTIVITAMINS,THERAPEUTIC TABLET PO SCH (08:07)
--- NOTE | 2018-09-10 08:13 | NUR ---
BS RESULTS BS is 171. Pt was educated on proper diet and exercise and needs to f/u with PCP.
--- NOTE | 2018-09-10 08:15 | NUR ---
PRN GIVEN Pt was given Clonidine 0.1mg PO PRN for increase anxiety and sweats. Encouraged increase fluid intake. will continue to monitor.
[2018-09-10 09:00] VITALS: BP 118/88
--- NOTE | 2018-09-10 09:00 | NUR ---
PRN GIVEN/RE-ASSESSMENT ON CLONIDINE PRN Pt continues to c/o feeling nauseous. Zofran 4mg SL PRN was given as ordered. encouraged increase fluid intake. BP was reassessed, BP is 118/88 and HR is 95. Pt states he continues to feel anxious and is noted with racing thought. pt is stating, "I need my phone to call my boss, my aunt, my daughter, I need to pay my rent, I have to go back to work and just have so many things I have to do". Pt denies any sweats. No tremors are seen. Pt is anxious due to discharge. Will continue to monitor.
[2018-09-10] MEDS: ONDANSETRON ODT 4 MG TAB.RAPDIS SL PRN (09:04)
--- NOTE | 2018-09-10 09:50 | NUR ---
PRN RE-ASSESSMENT Zofran 4mg SL PRN was effective. Pt denies any n/v. Pt was encouraged increase fluid intake. Will continue to monitor.
--- NOTE | 2018-09-10 10:00 | NUR ---
DISCHARGE NOTE Pt is a 47 yr old male, AA&Ox4. pt was admitted on 09/03/18 for ETOH withdrawal and has completed a 3 day modified Ativan taper as ordered. Pt was observed with anxiety, agitation, sweats, chills and c/o n/v. Pt was given Clonidine PRN and Zofran PRN for anxiety, agitation, sweats and n/v. Medication was effective and stated, "I'm still anxious but I do feel better". BP was 118/88 and HR 95. Pt was educated on discharged summary and prescriptions. Pt was able to verbalize understanding. Pt was discharged off the unit in stable condition at 0955 to [facility]. Pt left with all belongings, valuables and home medications.
== END 2018-09-10 10:00 | disposition other institution (70) | DRG 895 ==
LOC: SRC 14:11
PROVIDERS: ADMIT Family Medicine Addiction Medicine; ATTEND Family Medicine Addiction Medicine
PROC: HZ2ZZZZ Detoxification Services for Substance Abuse Treatment (ICD-10-PCS; principal; 2018-09-03)
PROC: HZ41ZZZ Group Counseling for Substance Abuse Treatment, Behavioral (ICD-10-PCS; 2018-09-05)
PROC: HZ31ZZZ Individual Counseling for Substance Abuse Treatment, Behavioral (ICD-10-PCS; 2018-09-05)
DX: F10.239 Alcohol dependence with withdrawal, unspecified (principal); F10.229 Alcohol dependence with intoxication, unspecified; Y90.7 Blood alcohol level of 200-239 mg/100 ml; R73.03 Prediabetes; F41.1 Generalized anxiety disorder; I10 Essential (primary) hypertension; R74.0 Nonspecific elevation of levels of transaminase and lactic acid dehydrogenase [LDH]; D69.6 Thrombocytopenia, unspecified; E87.6 Hypokalemia; G47.00 Insomnia, unspecified
CPT/HCPCS: 36415; 70030-TC; 80307; 83690; 83735; 84443; 85025; 86580; 86592; 86705; 86803; 87340; 87806; 90686; 90732; A4663; G0480; J3411; Q0162; Q0163